=== PATIENT | male | born 1935 | race Caucasian/White ===

== ENCOUNTER → 2020-10-30 | Outpatient (CLI) | payer MEDICARE, OTHER ==
[~2020-10-30] MED LIST: ASPIR 8181 MG PER TUBE; COZAAR 50 MG TA50 M2 PO; LIPITOR10 MG PO; MEGARED OMEGA-1 EAC1 PO; NOVOLOG100 UNIT/1
== END ==
LOC: M.MRI 11:14
PROVIDERS: ATTEND Orthopaedic Surgery
DX: M17.12 Unilateral primary osteoarthritis, left knee (principal)

== ENCOUNTER → 2020-11-13 | Outpatient (CLI) | payer MEDICARE, OTHER ==
[~2020-11-13] MED LIST changes: +ASA81BEC PO; +AVAPRO 150 MG150 M1 PO; +DAILY VALUE1 EAC1 PO; +LANTUS SUBQ; +METAMUCIL1 EAC1 PO; +NORCO5 PO; -NOVOLOG100 UNIT/1; +NOVOLOG100 UNIT/1 SUBQ; +OXYCODONE HCL10 MG PO; +TYLENOL EXTRA500 MG PO; +VITAMIN D3 COM1 EACH PO; +XARELTO10 MG PO
[2020-11-13 10:22] LABS: URINE BILIRUBIN NEGATIVE (Negative); URINE BLOOD NEGATIVE (Negative); URINE CLARITY CLEAR; URINE COLOR YELLOW; URINE GLUCOSE-RANDOM NEGATIVE (Negative); URINE KETONES NEGATIVE (Negative); URINE LEUKOCYTES-REFLEX NEGATIVE (Negative); URINE NITRITE-REFLEX NEGATIVE (Negative); URINE PROTEIN NEGATIVE (Negative); URINE SPECIFIC GRAVITY <= 1.005 (1.005-1.030); URINE UROBILINOGEN 0.2 E.U./dl (0.2-1.0)
[2020-11-13 10:23] LABS: ABSOLUTE BASOPHILS 0.1 thou/uL (0.0-0.2); ABSOLUTE EOSINOPHILS 0.3 thou/uL (0.0-0.7); ABSOLUTE LYMPHOCYTES 1.9 thou/uL (0.8-5.3); ABSOLUTE MONOCYTES 0.7 thou/uL (0.0-1.2); BASOPHILS 0.7 %; EOSINOPHILS 3.1 %; HEMOGLOBIN 13.7 gm/dL (14.0-18.0); LYMPHOCYTES 21.1 %; MCH 31.9 pg (26.0-34.0); MCHC 34.2 g/dL (28.0-37.0); MCV 93.3 fL (80.0-100.0); MONOCYTES 7.9 %; MPV 7.3 fl. (7.2-11.1); NUCLEATED RBCS 0 /100WBC; PLATELET COUNT* 372 thou/uL (150-400); POLYS 67.2 %; RBC 4.29 mil/uL (4.50-6.00); RDW-CV 13.2 % (10.5-14.5); WBC 8.9 thou/uL (4.0-11.0)
[2020-11-13 10:32] LABS: INR 0.9
[2020-11-13 10:36] LABS: ALBUMIN 3.6 g/dL (3.4-5.0); CALCIUM 10.5 mg/dL (8.5-10.1); CREATININE 0.7 mg/dL (0.6-1.3); POTASSIUM 4.1 mmol/L (3.5-5.1); TOTAL BILIRUBIN 0.4 mg/dL (<0.1-1.0); TOTAL PROTEIN 7.6 g/dL (6.4-8.2)
--- NOTE | 2020-11-13 14:10 | EKG ---
[place] [address] ELECTROCARDIOGRAM REPORT Name: NEYMARISRAEL ACEVEDO Room: [facility]#: [id number] Admission: 11/13/20 Attend Phys: Lonnie Merritt, Discharge: Date of : 35 Date of Service: 11/13/20 1037 Report #: [id number] THIS REPORT FOR: //name// 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
== END ==
LOC: M.LAB 10:04
PROVIDERS: ATTEND Orthopaedic Surgery
DX: Z01.818 Encounter for other preprocedural examination (principal); Z01.812 Encounter for preprocedural laboratory examination

== ENCOUNTER 2020-11-20 05:01 | Inpatient (IN) | payer MEDICARE, OTHER ==
[~2020-11-20] VITALS: Ht 175.3 cm; Wt 77.1 kg
[~2020-11-20 05:01] MED LIST changes: -NORCO5 PO; -OXYCODONE HCL10 MG PO; -XARELTO10 MG PO
[2020-11-20 07:30] VITALS: BP 124/83
[2020-11-20] MEDS ORDERED: LANTUS SUBQ (08:15)
[2020-11-20 13:00] VITALS: BP 127/66
--- NOTE | 2020-11-20 14:45 | NUR ---
pt admitted post op knee replacement. pt oriented to room. pt resting in bed. pt denies any pain at this time. pt educated on using call light when needing assistance.
[2020-11-20 16:00] VITALS: BP 138/63
--- NOTE | 2020-11-20 16:46 | NUR ---
PT REMAINED ALERT AND ORIENTED. PT RESTING IN BED. PT ORIENTED TO ROOM. PT DENIES ANY PAIN AT THIS TIME. PT EDUCATED ON USING CALL LIGHT WHEN NEEDING PAIN MEDS TO STAY ON TOP OF PAIN. FALL RISK PRECAUTIONS IN PLACE. HOURLY ROUNDING COMPLETED.
[2020-11-21 00:33] VITALS: BP 113/50
[2020-11-21 04:25] VITALS: BP 99/49
[2020-11-21 04:35] LABS: HEMATOCRIT 31.8 % (42.0-52.0); HEMOGLOBIN 10.7 gm/dL (14.0-18.0); MCH 31.1 pg (26.0-34.0); MCHC 33.6 g/dL (28.0-37.0); MCV 92.7 fL (80.0-100.0); MPV 7.7 fl. (7.2-11.1); RBC 3.43 mil/uL (4.50-6.00); RDW-CV 12.8 % (10.5-14.5); WBC 13.3 thou/uL (4.0-11.0)
[2020-11-21 04:36] LABS: CALCIUM 9.5 mg/dL (8.5-10.1); CREATININE 0.9 mg/dL (0.6-1.3); POTASSIUM 5.2 mmol/L (3.5-5.1)
--- NOTE | 2020-11-21 06:06 | NUR ---
PATIENT HAS RESTED WELL THROUGHOUT THE NIGHT. VSS ON 3L 02 VIA NASAL CANNULA. PATIENT DENIES PAIN DURING SHIFT WHEN ASKED. MEDICATIONS GIVEN ORDERED AND CHARTED. DRESSING TO LEFT KNEE IS C/D/I, DINORAH JAIN SCD'S AND POLAR PACK IN PLACE. PATIENT TOLERATED CPM WELL. IV IN LEFT FOREARM-SL. PATIENT INSTRUCTED TO USE CALL LIGHT WHEN NEEDING ASSISTANCE. HOURLY ROUNDS MADE. WILL CONTINUE WITH PLAN OF CARE AND NURSING TO MONITOR.
--- NOTE | 2020-11-21 06:53 | NUR ---
NO OT REQUIRED AT THIS TIME. WILL DEFER TREATMENT TO PT.
[2020-11-21 07:05] VITALS: BP 123/40
--- NOTE | 2020-11-21 13:43 | NUR ---
cm s/w pt who indicated he lives home with his , who walks with a cane and has concerns she isnt able to help care for pt at d/c. pt feels as if he needs add'l inpatient therapy prior to d/c. aru consult placed. pt has no dmes. pt is active, i.e. rides bikes, mows the lawn and walks the dog. however, pt has balance problems w/in the last 15 yrs d/t an "ear problem." pt has no hx with hh or snf. cm to cont to follow.
[2020-11-21 16:33] VITALS: BP 150/45
--- NOTE | 2020-11-21 16:50 | NUR ---
PT REMAINED ALERT AND ORIENTED. PT WORKED [facility] THERAPY. PAIN MEDS GIVEN ORDERED. FALL RISK PRECAUTIONS IN PLACE. HOURLY ROUNDING COMPLETED. REHAB CONSULT PLACED.
--- NOTE | 2020-11-21 21:11 | NUR ---
HOSPITAL GLUCOMETER NOT WORKING CORRECTLY. BLOOD SUGAR CHECKED WITH PATIENTS HOME GLUCOMETER AND BLOOD SUGAR WAS 392. GLARGINE 10 UNITS GIVEN.
--- NOTE | 2020-11-21 22:34 | OP ---
[address] [address] OPERATIVE REPORT Name: ISRAEL RIOS Room: [address] M.R.#: [id number] Admission: 11/20/20 Attend Phys: Kendrick Long Discharge: Date of : 35 Report #: [id number] THIS REPORT FOR: cc: Paul Nolasco MD, Richard K. MD Greiner, Robert F. II DO ~ DOC #: [id number] Lonnie Merritt II, DO DATE OF SURGERY: 11/20/2020 The patient is 85 years old. PREOPERATIVE DIAGNOSIS: Left knee osteoarthritis. POSTOPERATIVE DIAGNOSIS: Left knee osteoarthritis. PROCEDURE: Left total knee arthroplasty. SURGEON: Lonnie Merritt II, DO. CATEGORY DIRECTOR: None. ANESTHESIA: General endotracheal. ESTIMATED BLOOD LOSS: 50 mL ANTIBIOTICS: Ancef preoperatively. DRAINS: Medium Hemovac. COMPLICATIONS: None. INDICATIONS: The patient stable to recovery room. IMPLANTS: Listed in the operative record and progress note. BRIEF HISTORY: The patient was seen in the preoperative area. Preoperative H and P was performed. Site was marked, questions were answered. Risks and benefits were discussed with the patient in detail about surgery. The patient wished to proceed assuming all risks. DESCRIPTION OF THE PROCEDURE: The patient was taken to the operative suite, placed supine on the operating table and appropriate anesthesia. A well-padded tourniquet was applied to the upper thigh, which was inflated to 300 mmHg after gravity exsanguination. The upper knee was sterilely prepped and draped. Surgery began by midline incision, was carried down [place] [address] OPERATIVE REPORT Name: ISRAEL RIOS Room: [address] IN [facility].#: [id number] Admission: 11/20/20 Attend Phys: Kendrick Long Discharge: Date of : 35 Report #: [id number] medial parapatellar arthrotomy was performed, carried down to bone. The patella was then everted and excess soft tissue was removed from the femur. The femoral cutting block was then applied, checked with a drop for rotation alignment and appropriate cuts were made. A 4-in-1 cutting block was then applied, checked for rotation alignment, pinned in appropriate position, appropriate cuts were made. The tibia was then exposed. Excess meniscus was removed. Retractor was placed on collateral ligaments and the tibial cutting block was then applied, pinned in appropriate position, checked with a drop and rotation alignment and slope and appropriate cut was made. The tibial bone was removed, tibial base plate was then applied and checked for rotational alignment with the drop dandre and pinned in appropriate position. Femur was then applied. A box cut was reamed. This was trialed with appropriate spacer, which showed excellent fit and fill and excellent stability of the knee through all range of motion. The patella was reamed to appropriate fashion, sized appropriate size, 3 peg holes were drilled and it was then trialed and found to have excellent flexion and extension and excellent tracking patellofemoral groove. These trials were then removed. The tibia was punched in appropriate fashion. Bone ends were cleansed with Pulsavac irrigation. Cement was mixed, applied to final implants. These were then malleted into position, held the knee in extension and compressed to allow the cement to cure. After cured, excess was removed with a Morse and osteotome. Wound was then copiously irrigated and a final spacer was then malleted into position. Tourniquet was deflated. Hemostasis was obtained with electrocautery. The pain cocktail was injected. A median Hemovac drain was applied. Capsule was closed with #2 FiberWire and #1 Vicryl in praaji-rs-yutci fashion. Skin was closed with 2-0 Vicryl, running 3-0 Monocryl. Dermabond and sterile dressing were applied. Akil wrap and PolarCare were applied. The patient transported to the recovery room in stable condition. Counts were correct x 2. Lonnie Merrtit II, DO RFG/ROSA <ELECTRONICALLY SIGNED> By: Lonnie Merritt II, DO 11/21/20 2234 2215 [id number] Merritt II, DO /nt
[2020-11-22] VITALS: BP 108/47
[2020-11-22 03:42] LABS: HEMOGLOBIN 9.3 gm/dL (14.0-18.0)
[2020-11-22 04:00] VITALS: BP 117/53
--- NOTE | 2020-11-22 07:13 | NUR ---
PATIENT SLEPT OFF AND ON DURING THE NIGHT. VSS ON RA. MEDICATIONS GIVEN ORDERED AND CHARTED. PATIENT ON CPM AT BEGINNING OF SHIFT. DRESSING TO LEFT KNEE IS C/D/I, AND DINORAH HOSE AND POLAR CARE IN PLACE. IV IN LEFT FOREARM-SL. PATIENT UPSET THIS AM AND AGITATED WITH NURSING AID AND YELLED PROFANITIES AT AID PER CONVERSATION WITH NURSING AID WHILE SHE WAS IN ROOM TRYING TO HELP PATIENT WITH HIS BLANKETS. FALL PRECAUTIONS IN PLACE AND HOURLY ROUNDS MADE. WILL CONTINUE WITH PLAN OF CARE AND NURSING TO MONITOR.
[2020-11-22 08:15] VITALS: BP 105/63
--- NOTE | 2020-11-22 13:46 | NUR ---
Pt discharing to ARU today
[2020-11-22] MEDS ORDERED: XARELTO10 MG PO (15:50)
[2020-11-22] MEDS ORDERED: OXYCODONE HCL10 MG PO (17:59)
[2020-11-22] MEDS ORDERED: NORCO5 PO (18:01)
== END 2020-11-22 17:51 | DRG 470 ==
LOC: M.ORTHSURG 05:01 → M.TBA 06:52 → M.ORTHSURG 06:52
PROVIDERS: Internal Medicine; Orthopaedic Surgery; ADMIT Internal Medicine; ATTEND Internal Medicine
PROC: 0SRD0J9 Replacement of Left Knee Joint with Synthetic Substitute, Cemented, Open Approach (ICD-10-PCS; principal; 2020-11-20)
PROC: 3E0T3BZ Introduction of Anesthetic Agent into Peripheral Nerves and Plexi, Percutaneous Approach (ICD-10-PCS; principal; 2020-11-20)
DX: M17.12 Unilateral primary osteoarthritis, left knee (principal); E78.5 Hyperlipidemia, unspecified; I10 Essential (primary) hypertension; E11.40 Type 2 diabetes mellitus with diabetic neuropathy, unspecified; J44.9 Chronic obstructive pulmonary disease, unspecified; E11.51 Type 2 diabetes mellitus with diabetic peripheral angiopathy without gangrene; I48.91 Unspecified atrial fibrillation; Z86.73 Personal history of transient ischemic attack (TIA), and cerebral infarction without residual deficits; Z87.891 Personal history of nicotine dependence

== ENCOUNTER 2020-11-22 15:23 | Inpatient (IN) | payer MEDICARE, OTHER ==
[~2020-11-22] VITALS: Ht 167.6 cm; Wt 81.6 kg
[2020-11-22] MEDS ORDERED: XARELTO10 MG PO (15:50)
[2020-11-22] MEDS ORDERED: OXYCODONE HCL10 MG PO (17:59)
[2020-11-22] MEDS ORDERED: NORCO5 PO (18:01)
[2020-11-22 18:33] VITALS: BP 108/57
--- NOTE | 2020-11-22 18:49 | NUR ---
PATIENT ADMITTED TO ROOM 326 FROM ORTHO UNIT. REPORT RECEIVED FROM LILIYA TA. ALERT AND ORIENTED X 4. PATIENT RECEIVED OXY IR AT 1734 PRIOR TO COMING UP TO FLOOR. POLAR SURJIT IN PLACE, SCD'S AND THIGH HIGHS. BED ALARM ON FOR PATIENT SAFETY. ORIENTED TO CALL LIGHT AND REHAB UNIT.
--- NOTE | 2020-11-22 20:11 | NUR ---
I ASSUMED CARE OF THE PATIENT AT 0700. HE IS ALERT AND ORIENTED X4 AND IS UP WITH ASSIST OF 1, GAITBELT AND WALKER. BED IS IN THE LOW LOCKED POSITION AND CALL LIGHT IS IN REACH. HOURLY ROUNDING IS COMPLETE AND PATIENT NEEDS ARE MET. PAIN IS PARTIALLY MANAGED WITH PRN MEDS. HE WAS EDUCATED AND IS NOW USING THE POLAR PACK AND CPM MACHINE. HE HAS BILAT DINORAH HOSE AND FOOT PUMPS. BLOOD GLUCOSE IS MONITORED AND MANAGED WITH INSULIN. HE IS ON ROOM AIR. HE IS PROGRESSING TOWARDS HIS GOALS AND WORKED WELL WITH THERAPY. HE WAS TRANSFERED TO [facility] AT 1830.
[2020-11-22 20:22] VITALS: BP 140/62
--- NOTE | 2020-11-23 00:31 | NUR ---
ASSUMED CARE AT 191. PATIENT RESTING IN BED. DINORAH JAIN, POLAR PACK ON. REFUSED CPMM. DRESSING C/D/I TO LT LEG. SAT ON SIDE OF BED TO VOID PER URINAL TWICE THUS FAR. PATIENT ABLE TO USE CALL LITE. TAKES PILLS WHOLE WITH WATER. MEDICATED FOR PAIN WITH OXY AND SCHEDULED APAP, SEE AUG. SALINE LOCK TO LT FOREARM INTACT. ATE BANANA FOR HS SNACK. SET OFF BED ALARM ONCE BY BRINGING LEGS TO DEPENDENT POSITION ON SIDE OF BED TO VOID. SAFETY PRECAUTIONS INCLUDING BED ALARM REVIEWED WITH PATIENT. DR. STREET ROUNDED ON PATIENT. HOURLY ROUNDS CONTINUE. BED ALARM ON. CALL LITE IN REACH.
--- NOTE | 2020-11-23 05:30 | NUR ---
RESTED IN BED ALL SHIFT. VOIDED 6 TIMES THUS FAR PER URINAL WHILE SITTING ON THE SIDE OF THE BED. ABLE TO GET LEGS IN AND OUT OF THE BED PER SELF WITHOUT ASSIST. POLAR PACK CONTINUES. DRESSING D/I. MOVES WELL IN BED. NO FURTHER C/O PAIN OFFERED. HOURLY ROUNDS CONTINUE. BED ALARM ON. CALL LITE IN REACH.
--- NOTE | 2020-11-23 06:51 | NUR ---
CONSULT CALLED TO DR. AGUAYO'S OFFICE, VOICE MAIL LEFT.
[2020-11-23 08:29] LABS: HEMATOCRIT 31.9 % (42.0-52.0); HEMOGLOBIN 10.9 gm/dL (14.0-18.0); MCH 31.7 pg (26.0-34.0); MCHC 34.2 g/dL (28.0-37.0); MCV 92.6 fL (80.0-100.0); MPV 8.2 fl. (7.2-11.1); RBC 3.45 mil/uL (4.50-6.00)
[2020-11-23 08:30] VITALS: BP 121/55
[2020-11-23 08:40] LABS: CALCIUM 9.9 mg/dL (8.5-10.1); POTASSIUM 3.4 mmol/L (3.5-5.1)
--- NOTE | 2020-11-23 13:35 | NUR ---
Nutrition: pt admit s/p lt TKA. Pt reports appetite somewhat less than normal, but feels he is eating enough and does not want to put on any weight. Wt up 10 lb from acute admit. BG variable 71-241. Insulin, MVI, statin and other meds reivewed. No intake records. Pt was changed to CHO controlled diet at lunch today. No further recommendations. Low-mild nutrition risk.
--- NOTE | 2020-11-23 16:55 | NUR ---
ALERT AND ORIENTED X4. UP WITH 1 ASSIST, GAIT BELT AND WALKER. WBAT TO LEFT LOWER EXTREMITIES. USING PO PAIN MEDICATION TO HELP WITH LEFT KNEE PAIN. DRESSING CLEAN DRY AND INTACT. HAS POLAR CARE TO LEFT KNEE. WEARS DINORAH HOSE TO LOWER EXTREMITIES. NEW ORDER FOR CARB DIET AND SLIDING SCALE INSULIN. TAKES PILLS WHOLE WITHOUT DIFFICULTY. USES CALL LIGHT FOR ASSIST. FALL PRECAUTIONS IN PLACE. BED ALARM AND CHAIR ALARM USED.
[2020-11-23 20:23] VITALS: BP 124/97
--- NOTE | 2020-11-24 06:08 | NUR ---
ASSUMED PT CARE AT 1930. ASSESSMENT COMPLETED CHARTED. ABLE TO MAKE NEEDS KNOWN. C/O PAIN MEDICATION AND GAVE PRN AND SCHEDULED PER EMAR. PT RESTING IN BED THE REST OF THE NIGHT. POLAR PACK IN PLACE ON LEFT KNEE AND REPLACED ICE TWICE. TURNS SELF IN BED. WILL CONTINUE TO MONITOR.
[2020-11-24 08:30] VITALS: BP 116/54
--- NOTE | 2020-11-24 17:59 | NUR ---
ALERT AND ORIENTED X4. UP WITH 1 ASSIST, GAIT BELT AND WALKER IN HALLWAY. USING PO PAIN MEDICATION TO HELP WITH PAIN. USED POLAR CARE AT TIMES TODAY. WEARING DINORAH HOSE. USED CPM 0-85 FOR APROXIMATELY 1 HOUR. DRESSING CLEAN DRY AND INTACT OVER LEFT KNEE INCISION. CONTINENT OF BOWEL AND BLADDER. USES CALL LIGHT FOR ASSIST. FALL PRECAUTIONS IN PLACE BED ALARM AND CHAIR ALARM USED.
[2020-11-24 19:00] VITALS: BP 101/50
[2020-11-25 04:09] LABS: ABSOLUTE BASOPHILS 0.1 thou/uL (0.0-0.2); ABSOLUTE EOSINOPHILS 0.2 thou/uL (0.0-0.7); ABSOLUTE LYMPHOCYTES 2.1 thou/uL (0.8-5.3); ABSOLUTE MONOCYTES 0.9 thou/uL (0.0-1.2); ABSOLUTE NEUTROPHILS 5.7 thou/uL (1.6-8.1); BASOPHILS 0.8 %; EOSINOPHILS 2.7 %; HEMATOCRIT 25.3 % (42.0-52.0); LYMPHOCYTES 23.6 %; MCH 32.2 pg (26.0-34.0); MCHC 34.7 g/dL (28.0-37.0); MCV 92.6 fL (80.0-100.0); MONOCYTES 9.8 %; MPV 7.9 fl. (7.2-11.1); NUCLEATED RBCS 0 /100WBC; POLYS 63.1 %; RBC 2.73 mil/uL (4.50-6.00); RDW-CV 12.9 % (10.5-14.5); WBC 9.1 thou/uL (4.0-11.0)
[2020-11-25 04:22] LABS: CREATININE 0.8 mg/dL (0.6-1.3); POTASSIUM 4.6 mmol/L (3.5-5.1)
[2020-11-25 04:59] LABS: HEMOGLOBIN 8.8 gm/dL (14.0-18.0); PLATELET COUNT* 341 thou/uL (150-400)
[2020-11-25 08:30] VITALS: BP 111/42
--- NOTE | 2020-11-25 16:53 | NUR ---
ALERT AND ORIENTED X4. UP WITH 1 ASSIST, GAIT BELT AND WALKER. USES PO PAIN MEDICATION TO HELP WITH PAIN. DRESSING REMAINS DRY AND INTACT OVER LEFT KNEE INCISION. MOM GIVEN FOR CONSTIPATION PER PATIENT REQUEST WITH NO RESULTS YET. DR NOTIFIED AGAIN TODAY THAT PATIENT WAS REFUSING PART OF HIS INSULIN AND BLOOD SUGARS RUNNING HIGH. PATIENT WAS INSTRUCTED ON WHY HE NEEDED TO FOLLOW WHAT THE DR ORDERED TO HELP KEEP HIS SUGARS BETTER CONTROLED. HE WAS ALSO INSTRUCTED NOT TO USE HIS OWN INSULIN IN HIS ROOM AND IT NEED TO GO HOME WITH FAMILY. HE WAS INFORMED EATTING THE GUMMY CANDIES AND CHOCOLATE COOKIES WAS NOT GOOD WITH HIS BLOOD SUGARS SO HIGH AND WITH HIM HAVING DIABETES. USES CALL LIGHT FOR ASSIST, FALL PRECAUTIONS IN PLACE. BED ALARM AND CHAIR ALARM USED.
[2020-11-25 19:55] VITALS: BP 121/48
[2020-11-26 08:30] VITALS: BP 151/79
--- NOTE | 2020-11-26 15:00 | NUR ---
INITIAL ASSESSMENT: PAT[facility]20 WITH A DIAGNOSIS OF LEFT TKA. PATIENT ALERT AND ORIENTED. PT NORMALLY INDEPENDENT WITH ADL'S, ACTIVE AND DRIVES. PATIENT RESIDES AT HOME WITH SPOUSE, AND SHE IS INDPENDENT AT HOME. PT INFORMS THAT HIS GRANDDAUGHTER HAS OFFERED TO ASSIST HIM AT HOME AT D/C HI SPOUSE FEARS THAT SHE MAY NOT BE ABLE TO. PRIOR TO ADMIT PT DID NOT USE ANY DME FOR MOBILITY. PT OWNS A WALKER, CANE, STOO RISER, AND GRAB BARS. PT HAS 0 HX OF HH OR SNF. CM ORIENTED PT TO [facility] AND PROCESSES, RESIDENT'S RIGHTS INFO, TEAM CONFRENCE, AND TO THE ROLE OF CM. CM WILL REMAIN AVAILABLE TO ASSIST AND FOLLOW NEEDED.
--- NOTE | 2020-11-26 16:51 | NUR ---
ALERT AND ORIENTED X4. UP WITH 1 GAIT BELT AND WALKER. USED PO PAIN MEDICATION AND ICE TO HELP WITH LEFT KNEE PAIN. DRESSING REMAINS DRY AND INTACT OVER LEFT KNEE INCISION. DINORAH HOSE IN PLACE. CONTINENT OF BOWEL AND BLADDER. HAD LARGE BM TODAY AFTER SUPPOSITORY GIVEN. USES CALL LIGHT FOR ASSIST. FALL PRECAUTIONS IN PLACE. BED ALARM AND CHAIR ALARM USED.
[2020-11-26 19:00] VITALS: BP 100/59
--- NOTE | 2020-11-27 04:59 | NUR ---
ASSUMED PT CARE AT 1930. ALERT AND ORIENTED X4, POLITE AND COOPERATIVE WITH CARES. DRESSING TO LEFT KNEE INCISION DRY AND INTACT. USED URINAL OVERNIGHT. NO STOOL THIS SHIFT. PRN PAIN MEDICATION ONCE FOR KNEE PAIN PER EMAR. TURNS SELF IN BED. CALL LIGHT IN REACH, BED ALARM ON FOR SAFETY. HOURLY ROUNDING IN PROGRESS, WILL CONTINUE TO MONITOR.
[2020-11-27 08:00] VITALS: BP 122/58
--- NOTE | 2020-11-27 10:13 | NUR ---
CM SPOKE TO THE PT'S SPOUSE TO PROVIDE INFO ABOUT INPT ARU AND TO DISCUSS ANY QUESTIONS OR CONCERNS THAT SHE MAY HAVE FOR THIS WEEKS TEAM CONFRENCE MEETING. PT'S SPOUSE HAS NO QUESTIONS OR CONCERNS AT THIS TIME. CM WILL REMAIN AVAILABLE TO ASSIST AND FOLLOW NEEDED.
[2020-11-27 19:44] VITALS: BP 131/54
--- NOTE | 2020-11-28 05:08 | NUR ---
ASSUMED PT CARE AT 1930. PT ALERT AND ORIENTED X4, POLITE AND COOPERATIVE WITH CARES. DRESSING TO LEFT KNEE INCISION DRY AND INTACT. USED URINAL OVERNIGHT. NO STOOL THIS SHIFT. PRN PAIN MEDICATION ONCE FOR KNEE PAIN. TURNS SELF IN BED. CALL LIGHT IN REACH, BED ALARM ON FOR SAFETY. HOURLY ROUNDING IN PROGRESS, WILL CONTINUE TO MONITOR.
[2020-11-28 08:05] VITALS: BP 118/57
--- NOTE | 2020-11-28 15:34 | NUR ---
AM ASSESSMENT AND VITAL SIGNS COMPLETED DOCUMENTED. DRESSING TO LEFT KNEE IS C/D/I. PT IS MIN ASSIST WITH TRANSFERS, TOILETING AND AMBULATION. PT NOW HAS SCHEDULED PAIN MEDICINE WITH PRN OXY IR FOR BREAKTHROUGH PAIN. PT IS MAKING GOOD PROGRESS TOWARD DISCHARGE GOALS. FALL PRECAUTIONS AND HOURLY ROUNDING CONTINUE.
[2020-11-28 19:00] VITALS: BP 108/47
[2020-11-29 07:30] VITALS: BP 119/44
[2020-11-29 20:14] VITALS: BP 141/54
--- NOTE | 2020-11-30 06:38 | NUR ---
ASSUMED PT CARE AT 1930. ASSESSMENT COMPLETED CHARTED. ABLE TO MAKE NEEDS KNOWN. UP MULTIPLE TIMES DURING THE NIGHT TO SIT ON THE EDGE OF THE BED TO URINATE. C/O PAIN IN LEFT KNEE AND GAVE PRN PAIN MEDS PER EMAR. PT RESTING IN BED MOST OF THE NIGHT. WILL CONTINUE TO MONITOR.
[2020-11-30 08:00] VITALS: BP 129/45
[2020-11-30 20:27] VITALS: BP 137/54
[2020-12-01 07:50] VITALS: BP 128/61
[2020-12-01 20:05] VITALS: BP 129/57
--- NOTE | 2020-12-02 04:08 | NUR ---
ASSUMED PT CARE AT 1930. PT ALERT AND ORIENTED X4, POLITE AND COOPERATIVE WITH CARES. DRESSING TO LEFT KNEE INCISION C/D/I. USED URINAL OVERNIGHT. NO STOOL THIS SHIFT. PRN PAIN MEDICATION ONCE FOR KNEE PAIN. TURNS SELF IN BED. SLEPT WELL OVERNIGHT. CALL LIGHT IN REACH, BED ALARM ON FOR SAFETY. HOURLY ROUNDING IN PROGRESS, WILL CONTINUE TO MONITOR.
[2020-12-02 08:00] VITALS: BP 123/72
--- NOTE | 2020-12-02 17:49 | NUR ---
PATIENT RESTING IN CHAIR. PATIENT IS UP STNADBY ASSIST WITH GAIT BELT AND WALKER. PATIENT USES BATHROOM AND URINAL. PATIENT HAS HAD COMPLAINTS OF PAIN X 1 THIS AM. PATIENT USED CPM X 1 THIS SHIFT. PATIENT HAS EXCELLENT APPETITE. PATIENT HAS REFUSED PARTIAL DOSES OF INSULIN. PATIENT DENIES ANY NEEDS AT THIS TIME. CALL LIGHT WITHIN REACH.
[2020-12-02 20:00] VITALS: BP 137/61
--- NOTE | 2020-12-03 04:21 | NUR ---
ASSUMED PT CARE AT 1930. PT ALERT AND ORIENTED X4, POLITE AND COOPERATIVE WITH CARES. DRESSING TO LEFT KNEE INCISION C/D/I. PT C/O PAIN IN LEFT FOOT WHICH IS EDEMATOUS AND BRUISED. PRN PAIN MEDICATION X1 THIS SHIFT. USED URINAL, STAFF EMPTIED. NO STOOL THIS SHIFT. TURNS SELF IN BED. CALL LIGHT IN REACH, BED ALARM ON FOR SAFETY. HOURLY ROUNDING IN PROGRESS, WILL CONTINUE TO MONITOR.
[2020-12-03 08:00] VITALS: BP 127/61
--- NOTE | 2020-12-03 17:02 | NUR ---
ALERT AND ORIENTED X4. UP WITH 1 ASSIST, GAIT BELT AND WALKER. DRESSING DRY AND INTACT OVER LEFT KNEE INCISION. ON SCHEDULED PAIN MEDICATION. CONTINENT OF BOWEL AND BLADDER. DR NOTIFIED OF LEFT FOOT SWELLING AND PATIENT REFUSING PART OF HIS INSULIN. TAKES PILL WHOLE WITHOUT DIFFICULTY. USES CALL LIGHT FOR ASSIST. FALL PRECAUTIONS IN PLACE,BED ALARM AND CHAIR ALARM USED.
[2020-12-03 20:00] VITALS: BP 127/51
--- NOTE | 2020-12-04 04:39 | NUR ---
ASSUMED PT CARE AT 1930. PT ALERT AND ORIENTED X4, POLITE AND COOPERATIVE WITH CARES. DRESSING TO LEFT KNEE INCISION C/D/I. USED URINAL TO VOID MULTIPLE TIMES OVERNIGHT, STAFF EMPTIED. NO STOOL THIS SHIFT. TURNS SELF IN BED. PT ANTICIPATING DISCHARGE HOME TODAY. CALL LIGHT IN REACH, BED ALARM ON FOR SAFETY. HOURLY ROUNDING IN PROGRESS, WILL CONTINUE TO MONITOR.
[2020-12-04 08:15] VITALS: BP 150/43
[2020-12-04] MEDS ORDERED: OXYCONTIN10 M1 PO (10:02)
[2020-12-04] MEDS ORDERED: LIPITOR10 MG PO (10:02)
[2020-12-04] MEDS ORDERED: OXYCODONE HCL10 MG PO (10:02)
[2020-12-04] MEDS ORDERED: TYLENOL EXTRA500 MG PO (10:02)
[2020-12-04] MEDS ORDERED: AVAPRO 150 MG150 M1 PO (10:02)
[2020-12-04] MEDS ORDERED: XARELTO10 MG PO (10:02)
[2020-12-04 10:26] VITALS: BP 150/43
[2020-12-04 10:38] VITALS: BP 150/43
--- NOTE | 2020-12-04 12:25 | NUR ---
PATIENT AND VERBALIZED UNDERSTANDING OF DISCHARGE ISTRUCTIONS. WRITTEN RX GIVEN TO . DENIES PAIN AT DISCHARGE. DRESSING DRY AND INTACT OVER LEFT KNEE INCISION. LEFT WITH IN FAMILY CAR.
--- NOTE | 2020-12-04 17:03 | NUR ---
PLAN FOR THE PT TO D/C HOME TODAY WITH HH. PT AND SPOUSE HAVE NO HH PREFERENCE, AND ACCEPT HH WITH [facility]. CM CALLED AND FAXED D/C ORDERS TO [facility]. [facility] ACCEPT[facility] PT AND WILL CONTACT HIM TO ARRANGE A TIME TO VISIT. CM WILL REMAIN AVAILABLE TO ASSIST AND FOLLOW NEEDED. [facility] PHONE: [phone]
== END 2020-12-04 12:10 | disposition home health service (06) | DRG 554 ==
LOC: M.REH 15:23
PROVIDERS: Internal Medicine; ADMIT Physical Medicine & Rehabilitation; ATTEND Physical Medicine & Rehabilitation
DX: M17.12 Unilateral primary osteoarthritis, left knee (principal); R53.81 Other malaise; I10 Essential (primary) hypertension; Z86.73 Personal history of transient ischemic attack (TIA), and cerebral infarction without residual deficits; G89.29 Other chronic pain; R73.9 Hyperglycemia, unspecified; E78.5 Hyperlipidemia, unspecified; D64.9 Anemia, unspecified